=== PATIENT | female | born 1980 | race Caucasian/White ===

== ENCOUNTER 2018-06-21 13:26 | Emergency (ER) | payer OTHER ==
[2018-06-21 14:18] VITALS: BP 120/80
--- NOTE | 2018-06-21 14:20 | UC ---
Respiratory Complaint HPI - HPI Summary HPI Summary: 37 yo female presents with LEFT ear pain, mild headache and sore throat for the last 3-4 days. Feels fatigued today. Has been taking ibuprofen OTC with no relief. Denies fever, chills, sinus symptoms, SOB, chest pain. - History of Current Complaint Chief Complaint: UCEar Stated Complaint: ST,COUGH,LEFT EAR COMPLAINT Time Seen by Provider: 06/21/18 14:20 Hx Obtained From: Patient Hx Last Menstrual Period: ~06/03/18 Onset/Duration: Gradual Onset Severity Initially: Mild Severity Currently: Moderate Pain Intensity: 6 Pain Scale Used: 0-10 Numeric Character: Cough: Nonproductive - Allergies/Home Medications Allergies/Adverse Reactions: Allergies Allergy/AdvReac Type Severity Reaction Status Date / Time No Known Allergies Allergy Verified 06/21/18 14:16 Home Medications: Home Medications Levothyroxine TAB* [Synthroid TAB*] 175 mcg PO DAILY 06/21/18 [History Confirmed 06/21/18] PMH/Surg Hx/FS Hx/Imm Hx Endocrine History: Hypothyroidism Other History Of: Negative For: HIV, Hepatitis B, Hepatitis C, Anticoagulant Therapy - Surgical History Surgical History: Yes Surgery Procedure, Year, and Place: Bilateral Mastectomy (+BRCA), 2017 - Family History Known Family History: Positive: None - Social History Occupation: Employed Full-time Lives: With Family Alcohol Use: None Substance Use Type: None Smoking Status (MU): Never Smoked Tobacco - Immunization History Most Recent Influenza Vaccination: Not the 2014/2015 Season Review of Systems All Other Systems Reviewed And Are Negative: Yes Constitutional: Positive: Fatigue Skin: Positive: Negative Eyes: Positive: Negative ENT: Positive: Sore Throat, Ear Ache Respiratory: Positive: Cough Cardiovascular: Positive: Negative Gastrointestinal: Positive: Negative Neurological: Positive: Negative Psychological: Positive: Negative Physical Exam - Summary Physical Exam Summary: GENERAL: NAD. WDWN. No pain distress. SKIN: No rashes, sores, lesions, or open wounds. HEENT: Head: AT/NC Eyes: EOM intact. Conjunctiva clear without inflammation or discharge. Ears: Hearing grossly normal. TMs intact, no bulging, erythema, or edema. Nose: Nasal mucosa pink and moist. NTTP maxillary and frontal sinus. Throat: Posterior oropharynx without exudates, erythema, or tonsillar enlargement. Uvula midline. NECK: Supple. Nontender. No lymphadenopathy. CHEST: CTAB. No r/r/w. No accessory muscle use. Breathing comfortably and in no distress. CV: RRR. Without m/r/g. Pulses intact. Cap refill <2seconds NEURO: Alert. PSYCH: Age appropriate behavior. Triage Information Reviewed: Yes Vital Signs: Initial Vital Signs Temp 97.2 F 06/21/18 14:15 Pulse 70 06/21/18 14:15 Resp 14 06/21/18 14:15 BP 120/80 06/21/18 14:15 Pulse Ox 99 06/21/18 14:15 Vital Signs Reviewed: Yes Diagnostic Evaluation - Laboratory O2 Sat by Pulse Oximetry: 99 Respiratory Course/Dx - Course Course Of Treatment: Suspect viral illness - will try her with flonase and tessalon for symptomatic relief. F/u if not improving. - Differential Dx/Diagnosis Provider Diagnosis: Viral syndrome Discharge - Sign-Out/Discharge Documenting (check all that apply): Patient Departure All imaging exams completed and their final reports reviewed: No Studies - Discharge Plan Condition: Stable Disposition: HOME Prescriptions: Benzonatate CAP* [Tessalon 100 MG CAP*] 100 mg PO TID PRN #15 cap PRN Reason: Cough Fluticasone NASAL SPRAY 50MCG* [Flonase NASAL SPRAY 50MCG*] 2 spray BOTH NARES DAILY #1 btl Patient Education Materials: Rhinosinusitis (DC) Referrals: No Primary Care Phys,NOPCP [Primary Care Provider] - Additional Instructions: If you develop a fever, shortness of breath, chest pain, new or worsening symptoms - please call your PCP or go to the ED. - Billing Disposition and Condition Condition: STABLE Disposition: Home
== END 2018-06-21 14:30 | disposition home or self-care (01) ==
LOC: UCCORT 13:26
DX: B34.9 Viral infection, unspecified (principal); E03.9 Hypothyroidism, unspecified
CPT/HCPCS: 99212; G0463

== ENCOUNTER 2018-09-04 08:18 | Emergency (ER) | payer OTHER ==
--- OUTSIDE RECORDS SUMMARY | 2018-09-04 08:33 | XMS REPORT | Continuity of Care Document ---
:1980 External Reference #:[id number] Author Name Kell Bowie FNP Address [address] [facility] [place] [place] [address] Care Team Providers Name Role Phone Kell Bowie NP Care Team Information Mechanical Estimator Unavailable Kell Bowie NP Primary Care Physician Unavailable Payers Date Identification Numbers Payment Provider Subscriber Expires: Policy Number: [id number] Shanelle Shanice Ferguson 2018 Joleen PayID: [id number] [address] [address] [place] [address] Effective: 2018 Policy Number: Francois Medicaid Shanice Ferguson [id number] Joleen PayID: [id number] [address] [place] [address] Advance Directives Description No Information Available Problems Date Description Provider Status Onset: 05/15/2012 Hypothyroidism Svitlana Ordonez RPAC Active Onset: 04/09/2011 Raynaud's disease Svitlana Ordonez RPAC Active Onset: 09/04/2016 Disorder of shoulder Bree Arita PA Active Onset: 08/27/2017 History of bilateral mastectomy Active Onset: 06/03/2017 BRCA1 gene mutation positive Active Onset: 02/07/2017 Acute pharyngitis Marie Galaviz MD Resolved Resolved: 08/26/2018 Family History Date Family Member(s) Observation Comments Father No Current Problems Mother Brca positive double mastectomy/hysterecto my First Sister Broca positive Second Sister Brocca positive : (age 90 Paternal Grandfather due to Natural Years) Causes : (age 90 Paternal Grandmother due to Natural Years) Causes : (age 90 Maternal Grandfather due to Natural Years) Causes : (age 93 Maternal Grandmother due to Natural Years) Causes Aunt Ovarian Cancer BROCA positive Social History Type Date Description Comments Sex Unknown Lives With Diet Patient follows no dietary restrictions Occupation [employer] Work Status Employed [employer] Work[employer] Tobacco Use Start: Unknown End: Former Cigarette Smoker smoked briefly in Unknown college ETOH Use Currently consumes alcohol socially Tobacco Use Start: Unknown End: Patient is a former smoker Unknown Smoking Status Reviewed: 08/26/18 Patient is a former smoker Allergies, Adverse Reactions, Alerts Description No Known Drug Allergies Medications Medication Date Status Form Strength Qnty SIG Indications Ordering Provider Synthroid Active Tablets 200mcg 30tabs one by E03.9 Azeb, 018 mouth Jenniferle every day igh, [employer] Fluoxetine HCL Active Capsules 20mg 30caps 1 by Azeb (PMDD) 016 mouth Jenniferle every day igh, [employer] Loestrin /20 Hx Tablets 1-20mg-mcg 63tabs 1 tab by Guillaume (21) 017 - mouth MD Marie every 019 daily Lo Loestrin Fe Hx Tablets 1mg-10 mcg Unknown 017 - / 10 mcg 019 Amoxicillin Hx Tablets 500mg 20tabs 1 tab by J02.8 Leti 016 - mouth Lu, twice a PNP-BC, 017 day for [employer], Ibclc 10 days Synthroid Hx Tablets 175mcg 30tabs 1 by E03.9 Azeb, 015 - mouth Jenniferle every day igh, [employer] 018 *overdue for repeat thyroid labs - they were ordered - please have done* Lo/Ovral-28 Hx Tablets 28tabs 1 po qd Olivier Thompson - Hayley Aden NP 015 Loestrin Fe 00//0 Hx Tablets 1.5-30mg-mc 1Pack 1 po qd Unknown 1.5/30 000 - g 016 Synthroid 0 Hx Tablets 175 30tabs 1 po qd Unknown 000 - 015 Fluoxetine HCL Hx Tablets 10mg 30tabs one a day Mumtaz Fabián - Tg, Kassi 016 Amoxicillin/Cl 0 Hx Tablets 875-125mg 1 PO bid Unknown avulanate 000 - Potassium 016 Deblitane Hx Tablets 0.35mg 1 tab po Unknown 000 - daily 017 Medications Administered in Office Medication Date Status Form Strength Qnty SIG Indications Ordering Provider Methylprednisolone 07/12 Administered Injection Juan J PABLO Giron (Depomedrol) 80mg injection Immunizations CPT Code Status Date Vaccine Lot # 65049 Given 08/26/2018 Tdap injection [id number] Refused 05/21/2012 flu vaccination Vital Signs Date Vital Result Comment 08/26/2018 8:32am BP Systolic Sitting Left Arm 124 mmHg BP Diastolic Sitting Left Arm 124 mmHg Heart Rate 68 /min Respiratory Rate 18 /min Height 67.5 inches 5'7.50" Weight 184.00 lb BMI (Body Mass Index) 28.4 kg/m2 BSA (Body Surface Area) 1.96 m2 [place] body weight in kilograms 62 kg 02/07/2017 11:13am BP Systolic 105 mmHg BP Diastolic 74 mmHg Body Temperature 98.2 F Heart Rate 40 /min Height 67.5 inches 5'7.50" Weight 171.00 lb BMI (Body Mass Index) 26.4 kg/m2 BSA (Body Surface Area) 1.90 m2 [place] body weight in kilograms 62 kg 07/12/2016 2:10pm BP Systolic Sitting Left Arm 125 mmHg BP Diastolic Sitting Left Arm 80 mmHg Heart Rate 56 /min Height 67.5 inches 5'7.50" Weight 177.38 lb BMI (Body Mass Index) 27.4 kg/m2 BSA (Body Surface Area) 1.93 m2 [place] body weight in kilograms 62 kg 06/05/2016 2:31pm BP Systolic Sitting Left Arm 104 mmHg BP Diastolic Sitting Left Arm 58 mmHg Body Temperature 98.5 F Heart Rate 60 /min Respiratory Rate 16 /min Height 68 inches 5'8" Weight 177.00 lb BMI (Body Mass Index) 26.9 kg/m2 BSA (Body Surface Area) 1.94 m2 Last Menstrual Period [id number] 07/01/2015 10:48am BP Systolic Sitting Left Arm 112 mmHg BP Diastolic Sitting Left Arm 74 mmHg Heart Rate 78 /min Respiratory Rate 20 /min Height 68 inches 5'8" Weight 168.00 lb BMI (Body Mass Index) 25.5 kg/m2 BSA (Body Surface Area) 1.90 m2 10/11/2014 11:36am BP Systolic Sitting Left Arm 116 mmHg BP Diastolic Sitting Left Arm 64 mmHg Heart Rate 76 /min Respiratory Rate 18 /min Height 68 inches 5'8" Weight 162.00 lb BMI (Body Mass Index) 24.6 kg/m2 BSA (Body Surface Area) 1.87 m2 Last Menstrual Period [id number] 05/07/2013 9:19am BP Systolic Sitting Right Arm 112 mmHg BP Diastolic Sitting Right Arm 69 mmHg Heart Rate 51 /min Respiratory Rate 18 /min Height 68 inches 5'8" Weight 148.00 lb BMI (Body Mass Index) 22.5 kg/m2 BSA (Body Surface Area) 1.80 m2 03/02/2013 10:58am BP Systolic 102 mmHg BP Diastolic 62 mmHg Height 68 inches 5'8" Weight 148.00 lb 02/13/2013 2:49pm BP Systolic 116 mmHg BP Diastolic 68 mmHg Body Temperature 98.1 F Height 68 inches 5'8" Weight 145.00 lb 07/25/2012 1:10pm BP Systolic 112 mmHg BP Diastolic 66 mmHg Height 68 inches 5'8" Weight 147.00 lb 06/13/2012 10:56am BP Systolic 116 mmHg BP Diastolic 72 mmHg Height 68 inches 5'8" Weight 150.00 lb 05/21/2012 10:38am BP Systolic 118 mmHg BP Diastolic 74 mmHg Heart Rate 88 /min Respiratory Rate 18 /min Height 68 inches 5'8" Weight 155.00 lb 04/02/2011 1:50pm Height 68 inches 5'8" 04/02/2011 1:54pm BP Systolic 102 mmHg BP Diastolic 62 mmHg Heart Rate 72 /min Height 68 inches 5'8" Weight 151.00 lb Results Test Date Facility Test Result H/L Range Note Urine Dipstick 08/26/2018 [facility] Ua Leuko - Negative Ua Nitrite - Negative Ua Urobilinogen .2 0.2 - 1.0 E.U./dL Ua Protein - Negative Ua PH 6 Low 6.5-7.5 Ua Blood - Negative Ua Specific [place] 1.020 1.010-1.030 Ua Ketones - Negative Ua Bilirubin - Negative Ua Glucose - Negative Laboratory 02/06/[address] [facility] [address] Thyroid 2.02 uIU/mL N 0.30-4.20 1 test finding [address] [place] [address] Hormone [phone] Laboratory 09/11/2017 [facility] [address] Thyroid 38.70 uIU/mL High 0.30- 4.20 test finding [address] [facility] [place] [address] Hormone [phone] Laboratory 02/07/2017 [facility] Throat NO BETA 2, test finding [address] Strep STREPTOC <SEE [address] [place] [address] Screen NOTE> [phone] Throat Strep 06/05/2016 [facility] Throat BETA Abnormal 4, Screen [address] Strep STREPTOCOCC [address] [place] [address] Screen <SEE NOTE> [phone] Quantity MANY N Recommended Therapy: PENICILLIN OR AM <SEE NOTE> N 6 Alternative Therapy: ERYTHROMYCIN MAY <SEE NOTE> N 7 Laboratory test 06/24/2015 [facility] TSH Reflex 0.76 uIU/mL 0.36-3.74 [address] FT4 and/[place] [address] FT3 [phone] Basic Metabolic 06/24/2015 [facility] Glucose 91 mg/dL 74-[address] [place] [address] [phone] BUN 12 mg/dL 7-18 Creatinine 0.9 mg/dL 0.6-1.3 Glom Filtration Rate, Estimate >60 mL/min >60 If >60 mL/min >60 9 BUN/Creat 13.3 ratio Sodium 140 mmol/L 136-145 Potassium 3.9 mmol/L 3.5-5.1 Chloride 107 mmol/L 98-107 Carbon Dioxide 27 mmol/L 21-32 Anion Gap 6 mEq/L Low 8-16 Calcium 8.9 mg/dL 8.5-10.1 Laboratory test finding 02/23/2014 N2N/CCD Import Free T4 1.13 ng/dL 0.71-1.85 Thyroid Stim Hormone 2.30 uIU/mL 0.49-4.67 Laboratory test finding 03/02/2013 N2N/CCD Import T4 7.5 ug/mL 5.0-12.0 TSH (Thyroid Stimulating Horm) 38.31 miu/mL High 0.34-5.60 Laboratory test 02/13/2013 N2N/CCD Import Throat Culture (See Note) 10 finding Laboratory test 10/28/2012 N2N/CCD Import Free T4 1.19 ng/mL 0.61-1.2 finding 4 TSH (Thyroid Stimulating Horm) 0.10 miu/mL Low 0.34-5.60 Laboratory test finding 08/12/2012 N2N/CCD Import Free T4 1.19 ng/mL 0.61-1.24 TSH (Thyroid Stimulating Horm) 0.07 miu/mL Low 0.34-5.60 Laboratory test finding 07/25/2012 N2N/CCD Import Free T4 1.71 ng/mL High 0.61-1.24 TSH (Thyroid Stimulating Horm) 0.04 miu/mL Low 0.34-5.60 Comp Metabolic Panel 07/25/2012 N2N/CCD Import Albumin 4.3 g/dL 3.6-5.4 Albumin/Globulin Ratio 1.5 1-3 Alkaline Phosphatase 42 U/L 30-110 Alt 15 U/L 14-54 Anion Gap 10.0 mmol/L 2-11 Ast 22 U/L 12-42 BUN/Creatinine Ratio 11.1 8-20 Blood Urea Nitrogen 10 mg/dL 6-24 Calcium 9.7 mg/dL 8.1-9.9 Chloride 104 mmol/L 101-111 Co2 Carbon Dioxide 23.0 mmol/L 22-32 Creatinine 0.90 mg/dL 0.50-1.40 Egfr 93.9 >60 11 Egfr Non- 73.0 >60 Globulin 2.8 g/dL 2-4 Glucose 88 mg/dL 70-100 Potassium 4.1 mmol/L 3.5-5.0 Sodium 137 mmol/L 133-145 Total Bilirubin 0.8 mg/dL 0.4-1.5 Total Protein 7.1 g/dL 6.2-8.1 Lipid Profile 07/25/2012 N2N/CCD Import Cholesterol 157 mg/dL Less than (Trig/Chol/HDL) 200 Cholesterol/HDL Ratio 3.1 Average 1-4.44 HDL Cholesterol 50 mg/dL 40-60 12 LDL Cholesterol 92.0 mg/dL Less Than 100 13 Triglycerides 75 mg/dL 40-200 Vitamin D, 25 07/25/2012 [facility] Import 25-Hydroxy Vitamin D 46 ng/mL 14 Hydroxy Total 25-Hydroxy Vitamin D2 38 ng/mL 25-Hydroxy Vitamin D3 8.0 ng/mL Laboratory test 05/21/2012 N2N/Modumetal Import TSH (Thyroid 37.60 High 0.34- 5.60 finding Stimulating Horm) MIU/ML CBC Auto Diff 05/21/2012 N2N/Modumetal Import Abs Basophils 0 10^3/uL 0-0.2 Abs Eosinophils 0.1 10^3/uL 0-0.6 Abs Lymphocytes 1.6 10^3/uL 1.0-4.8 Abs Monocytes 0.5 10^3/uL 0-0.8 Abs Neutrophils 7.2 10^3/uL 1.5-7.7 Abs Nucleated RBC 0 10^3/uL Basophil % 0.4 % 0-2 Eosinophil % 1.2 % 0-6 Granulocyte % 76.3 % 38-83 Hematocrit 38 % 35-47 Hemoglobin 13.0 g/dL 12.0-16.0 Lymphocyte % 16.7 % Low 25-47 Mean Corpuscular HGB Conc 34 g/dL 31-36 Mean Corpuscular Hemoglobin 34 pg High 27-31 Mean Corpuscular Volume 100 fL High 80-97 Mean Platelet Volume 9 um3 7.4-10.4 Monocyte % 5.4 % 1-9 Nucleated Red Blood Cells % 0 Platelet Count 258 10^3/uL 150-450 Red Blood Count 3.82 10^6/uL Low 4.0-5.4 Red Cell Distribution Width 12 % 10.5-15 White Blood Count 9.5 10^3/uL 4.8-10.8 Comp Metabolic Panel 05/21/2012 [facility] Import Albumin 4.7 g/dL 3.6-5.4 Albumin/Globulin Ratio 1.8 1-3 Alkaline Phosphatase 32 U/L 30-110 Alt 16 U/L 14-54 Anion Gap 8.0 mmol/L 2-11 Ast 23 U/L 12-42 BUN/Creatinine Ratio 10.0 8-20 Blood Urea Nitrogen 9 mg/dL 6-24 Calcium 9.3 mg/dL 8.1-9.9 Chloride 103 mmol/L 101-111 Co2 Carbon Dioxide 24.0 mmol/L 22-32 Creatinine 0.90 mg/dL 0.50-1.40 Egfr 93.9 >60 15 Egfr Non- 73.0 >60 Globulin 2.6 g/dL 2-4 Glucose 93 mg/dL 70-100 Potassium 4.3 mmol/L 3.5-5.0 Sodium 135 mmol/L 133-145 Total Bilirubin 0.6 mg/dL 0.4-1.5 Total Protein 7.3 g/dL 6.2-8.1 Lipid Profile 05/21/2012 N2N/CCD Import Cholesterol 186 mg/dL Less than (Trig/Chol/HDL) 200 Cholesterol/HDL Ratio 3.1 Average 1-4.44 HDL Cholesterol 61 mg/dL High 40-60 16 LDL Cholesterol 104.6 mg/dL High Less Than 100 17 Triglycerides 102 mg/dL 40-200 Vitamin D, 25 05/21/2012 N2N/CCD Import 25-Hydroxy Vitamin D 19 ng/mL 18 Hydroxy Total 25-Hydroxy Vitamin D2 <4.0 ng/mL 25-Hydroxy Vitamin D3 19 ng/mL Laboratory test 04/02/2011 N2N/CCD Import Antinuclear AB Negative Negative finding C Reactive Protein High Sensit 0.8 mg/L Less Than 3 19 Erythrocyte Sed Rate 3 MM/HR 0-15 Rheumatoid Factor < 15 Iu/ml <15 20 Uric Acid 5.4 mg/dL 2.6-7.2 CBC With Manual Diff 04/02/2011 N2N/CCD Import Absolute Neutrophil Count 3.4 Atypical Lymph 6 % 0-6 Basophil 2 % 0-2 Eosinophil 3 % 0-6 Hematocrit 38 % 35-47 Hemoglobin 13.4 g/dL 12.0-16.0 Lymphocyte 36 % 25-47 Macrocytosis Slight Mean Corpuscular HGB Cone 35 g/dL 32-36 Mean Corpuscular Hemoglob 34 pg High 27-31 Mean Corpuscular Volume 97 um3 79-97 Mean Platelet Volume 9.2 um3 7.4-10.4 Monocyte 1 % 0-13 Platelet Count 256 CUMM 150-450 Polysegmented Neutrophil 52 % 38-83 Red Cell Count 3.98 CUMM Low 4.2-5.4 Redcell Distribution WDTH 12 % 10.5-15 White Blood Count 6.6 CUMM 4.8-10.8 1 E03.9 2 J02.9 3 NO BETA STREPTOCOCCI ISOLATED 4 J02.8 5 BETA STREPTOCOCCUS GROUP A 6 PENICILLIN OR AMPICILLIN. 7 ERYTHROMYCIN MAY BE USED IN PENICILLIN ALLERGIC INDIVIDUALS 8 QUERY: Reflex add FT3? N QUERY: Reflex add FT4? Y 9 Note: Persistent reduction for 3 months or more in an eGFR <60 mL/min/1.73 m2 defines CKD. Patients with eGFR values >/=60 mL/min/1.73 m2 may also have CKD if evidence of persistent proteinuria is present. The original MDRD equation for estimated GFR is not valid for patients less than 18 years of age. Additional information may be found at www.kdoqi.org. 10 RUN DATE: 02/15/13 [facility] LAB LIVE PAGE 1 RUN TIME: [address] [address] Specimen Inquiry ----- Name: SHANICE GOODRICH : [address]: Kell Bowie [facility] Acct: [id number] Unit: [id number] AGE: 32 Location: [facility] Re02/13/13 SEX: F Status: REG REF ----- SPEC: [id number] SUDHA: 02/13/13-[address]: Kell RUIZ REQ: [id number] RECD: 02/13/13 STATUS: COMP _ SOURCE: THROAT SPDESC: ORDERED: Throat Culture ----- Procedure Result Verified Site ----- Throat Culture Final 02/15/13-1126 ML Organism 1 STREP GROUP A Quantity 2+ Organism 2 NORMAL DAISHA Quantity 3+ Susceptibility testing of penicillins and other B-lactams approved by FDA for treatment of Streptococcus pyogenes ( Group A Strep) and Streptococcus agalactiae (Group B Strep) is not necessary for clinical purposes and need not be done routinely, since as with vancomycin, resistant strains have not been recognized. (CLSI Y896-R02;p.66) Positive isolates will be saved for one week. Please call the Microbiology Laboratory if further susceptibility testing is needed. ----- END OF REPORT * ML=Testing performed at [facility] Lab DEPARTMENT OF PATHOLOGY, [address] [place] [address] Johnie Bella M.D. Director [facility] Permit # [id number] 11 Because ethnic data is not always readily available, this report includes an eGFR for both -Americans and non- Americans. The National Kidney Disease Education Program (NKDEP) does not endorse the use of the MDRD equation for patients that are not between the ages of 18 and 70, are , have extremes of body size, muscle mass, or nutritional status, or are non- or non-. According to the National Kidney Foundation, irrespective of diagnosis, the stage of the disease is based on the level of kidney function: Stage Description GFR(mL/min/1.73 m(2)) 1 Kidney damage with normal or decreased GFR 90 2 Kidney damage with mild decrease in GFR 60- 89 3 Moderate decrease in GFR 30-59 4 Severe decrease in GFR 15-29 5 Kidney failure <15 (or dialysis) 12 HDL Interpretation: Undesirable: High Risk: Less than 40 MG/DL Desirable: Low Risk: Greater than 60 MG/DL 13 LDL Interpretation: Low Risk Optimal Level: LDL Less than 100 MG/DL Near or Above Optimal: LDL 100-129 MG/DL Borderline High Risk: LDL 130-159 MG/DL High Risk : LDL 160-189 MG/DL Very High Risk: LDL Greater than 189 MG/DL 14 -- REFERENCE VALUE -- 25-HYDROXY D TOTAL (D2+D3) Optimum levels in the normal population are 25-80 Test Performed by: [place] [address]: Tejinder Morejon III, M.D. 15 Because ethnic data is not always readily available, this report includes an eGFR for both -Americans and non- Americans. The National Kidney Disease Education Program (NKDEP) does not endorse the use of the MDRD equation for patients that are not between the ages of 18 and 70, are , have extremes of body size, muscle mass, or nutritional status, or are non- or non-. According to the National Kidney Foundation, irrespective of diagnosis, the stage of the disease is based on the level of kidney function: Stage Description GFR(mL/min/1.73 m(2)) 1 Kidney damage with normal or decreased GFR 90 2 Kidney damage with mild decrease in GFR 60- 89 3 Moderate decrease in GFR 30-59 4 Severe decrease in GFR 15-29 5 Kidney failure <15 (or dialysis) 16 HDL Interpretation: Undesirable: High Risk: Less than 40 MG/DL Desirable: Low Risk: Greater than 60 MG/DL 17 LDL Interpretation: Low Risk Optimal Level: LDL Less than 100 MG/DL Near or Above Optimal: LDL 100-129 MG/DL Borderline High Risk: LDL 130-159 MG/DL High Risk : LDL 160-189 MG/DL Very High Risk: LDL Greater than 189 MG/DL 18 Interpretation: 10-24 (mild to moderate deficiency) -- REFERENCE VALUE -- 25-HYDROXY D TOTAL (D2+D3) Optimum levels in the normal population are 25-80 Test Performed by: [place] [address]: Tejinder Morejon III, M.D. 19 Less Than 1.0......Low Risk of Cardiovascular Disease 1.0- 3.0............Medium Risk (<2 Fold Increase) Greater Than 3.0...High Risk (Approximately 2-Fold Increase) 20 Test Performed by: [facility] D[facility] of Lab Med and Pathology [address] [place] [address]: Tejinder Morejon III, M.D. Procedures Date Code Description Status 07/12/2016 93131 Radiology, Shoulder: Two Views (Sso) Completed 07/12/2016 75516 Asp./Injection major joint Completed Encounters Type Date Location Provider Dx Diagnosis Office Visit 08/26/2018 Family Medicine Azeb, Z00.01 Encounter for 8:30a William Castorena, general adult [employer] medical exam w abnormal findings L71.9 Rosacea, unspecified R19.7 Diarrhea, unspecified E03.9 Hypothyroidism, unspecified F33.0 Major depressive disorder, recurrent, mild Office Visit 02/07/2017 Family [facility] Guillaume, J02.9 Acute pharyngitis, 10:45a William Salazar MD unspecified Office Visit 09/17/2016 Orthopaedic Mina Kirby41 Impingement 1:45p Office Kassi Aly syndrome of right shoulder Office Visit 09/04/2016 Amanda Cunningham.41 Impingement 8:30a Office PABLO Giron syndrome of right shoulder Office Visit 07/12/2016 Amanda Cunningham.41 Impingement 2:15p Office Bree, PA syndrome of right shoulder Office Visit 06/05/2016 Family Medicine Lu Landeros, J02.8 Acute pharyngitis 2:30p [address] PNP-BC, [employer], due to other Ibclc specified organisms Office Visit 07/01/2015 [facility] Mumtaz, E03.9 Hypothyroidism, 10:45a [address] Tg, unspecified M.Bryan F33.0 Major depressive disorder, recurrent, mild Office Visit 10/11/2014 11:30a Family Pandya V70.0 Examination Medicine William Mas M.D. General Medical RD Routine AT Health Care Facility Office Visit 05/07/2013 9:00a Surgical Pancho, 709.9 Skin & Office Mark Pascual M.D. Tissue Disorders Unspec Plan of Treatment 08/26/2018 - Kell Bowie FNPZ00.01 Encounter for general adult medical examination with abnormaComments:Immunizations reviewed, declined yearly flu shot, Tdap given. Continue to work on increasing exerciseDiet to be addressed w/GI and derm in relation to rosacea. Strive for heart healthy diet low in fats and high in fruits and vegetables. depression screening - known depression but well controlled at this timeDiscuss breast cancer surveillance with [employer] (mammo's vs. MRI or other, when to start and frequency). Pap to be done by [facility]. Continue routine dental care with cleanings every 6 monthsTime to schedule and eye exam!L71.9 Rosacea, unspecifiedComments:Will send to Derm for further evaluation and [id number] Diarrhea, unspecifiedComments:GI who can also help investigate for food sensitivities as related to rosacea. In meantime try probiotics like Align or other.E03.9 Hypothyroidism, unspecifiedComments:blood work UTD, next due 01/2019no changes in medications made at this timeF33.0 Major depressive disorder, recurrent, mildComments: stable no medication changes at this time
[2018-09-04 09:07] VITALS: BP 126/72
--- NOTE | 2018-09-04 09:37 | ED ---
Throat Pain/Nasal Congestion - HPI Summary HPI Summary: 37 yr old female with the complaint of sore throat. Onset two days ago, and she also has left ear pain. She denies runny nose, coughing. She denies fever or chills. She has no other complaints. No drooling. - History of Current Complaint Chief Complaint: UCRespiratory Time Seen by Provider: 09/04/18 09:07 - Allergies/Home Medications Allergies/Adverse Reactions: Allergies Allergy/AdvReac Type Severity Reaction Status Date / Time No Known Allergies Allergy Verified 09/04/18 09:00 PMH/Surg Hx/FS Hx/Imm Hx Endocrine/Hematology History: Reports: Hx Thyroid Disease - Hypothyroidism Denies: Hx Anticoagulant Therapy, Hx Diabetes Cardiovascular History: Denies: Hx Congestive Heart Failure, Hx Deep Vein Thrombosis, Hx Hypertension , Hx Myocardial Infarction, Hx Pacemaker/ICD Respiratory History: Denies: Hx Asthma, Hx Chronic Obstructive Pulmonary Disease (COPD), Hx Lung Cancer, Hx Pneumonia, Hx Pulmonary Embolism GI History: Denies: Hx Gall Bladder Disease, Hx Gastrointestinal Bleed, Hx Ulcer, Hx Urosepsis History: Denies: Hx Kidney Stones, Hx Renal Disease Neurological History: Denies: Hx Dementia, Hx Migraine, Hx Seizures, Hx Transient Ischemic Attacks (TIA) Psychiatric History: Denies: Hx Anxiety, Hx Depression, Hx Schizophrenia, Hx Bipolar Disorder - Surgical History Surgery Procedure, Year, and Place: Bilateral Mastectomy (+BRCA), 2017 Infectious Disease History: No Infectious Disease History: Denies: Traveled Outside the [place] in Last 30 Days - Family History Known Family History: Positive: None - Social History Occupation: Employed Full-time Lives: With Family Alcohol Use: None Substance Use Type: Reports: None Smoking Status (MU): Never Smoked Tobacco Review of Systems Constitutional: Negative Positive: Sore Throat, Ear Ache All Other Systems Reviewed And Are Negative: Yes Physical Exam Triage Information Reviewed: Yes Vital Signs On Initial Exam: Initial Vitals Temp Pulse Resp BP Pulse Ox 98.4 F 65 18 126/72 100 09/04/18 09:01 09/04/18 09:01 09/04/18 09:01 09/04/18 09:01 09/04/18 09:01 Vital Signs Reviewed: Yes Appearance: Positive: Well-Appearing, No Pain Distress Skin: Positive: Warm, Skin Color Reflects Adequate Perfusion Head/Face: Positive: Normal Head/Face Inspection Eyes: Positive: EOMI, KRUNAL ENT: Positive: Pharyngeal erythema, TMs normal. Negative: Nasal congestion, Nasal drainage Neck: Positive: Nontender, No Lymphadenopathy Respiratory/Lung Sounds: Positive: Clear to Auscultation, Breath Sounds Present Cardiovascular: Positive: RRR. Negative: Murmur Abdomen Description: Negative: Distended Musculoskeletal: Positive: Strength/ROM Intact Neurological: Positive: Sensory/Motor Intact, Alert, Oriented to Person Place, Time, CN Intact II-III, Normal Gait, Speech Normal Psychiatric: Positive: Normal Diagnostics - Vital Signs Vital Signs Temp Pulse Resp BP Pulse Ox 09/04/18 09:01 98.4 F 65 18 126/72 100 - Laboratory Lab Results: Lab Results 09/04/18 Range/Units 09:14 Group A Strep Rapid Negative (Negative) Lab Statement: Any lab studies that have been ordered have been reviewed, and results considered in the medical decision making process. EENT Course/Dx - Course Course Of Treatment: 37 yr old with pharyngitis. Step neg. DC home. - Diagnoses Provider Diagnoses: Pharyngitis Discharge - Sign-Out/Discharge Documenting (check all that apply): Patient Departure All imaging exams completed and their final reports reviewed: No Studies - Discharge Plan Condition: Good Disposition: HOME Patient Education Materials: Pharyngitis (ED) Referrals: Vicki Bowie NP [Primary Care Provider] - - Billing Disposition and Condition Condition: GOOD Disposition: Home
== END 2018-09-04 09:40 | disposition home or self-care (01) ==
LOC: UCCORT 08:18
DX: J02.9 Acute pharyngitis, unspecified (principal); H92.02 Otalgia, left ear
CPT/HCPCS: 87651; 99212; G0463